=== PATIENT | female | born 1945 | race Two or more races ===

== ENCOUNTER 2025-10-22 13:59 | Emergency (ER) | payer OTHER ==
[~2025-10-22] VITALS: Ht 154.9 cm; Wt 67.6 kg
[2025-10-22] MEDS ORDERED: FARXIGA10 MG (14:31)
[2025-10-22] MEDS ORDERED: ACTEMRA162 MG/0.9 (14:31)
[2025-10-22] MEDS ORDERED: CRESTOR40 MG (14:31)
[2025-10-22] MEDS ORDERED: NEURONTIN300 MG (14:31)
[2025-10-22] MEDS ORDERED: NORVASC5 MG (14:32)
[2025-10-22] MEDS ORDERED: ELIQUIS5 MG (14:32)
[2025-10-22] MEDS ORDERED: METFORMIN HCL1000 M2 (14:32)
[2025-10-22] MEDS ORDERED: FAMOTIDINE/PF 20 MG in 0.9 % SODIUM CHLORIDE 100 ML IV ONE (17:45)
[2025-10-22] MEDS ORDERED: ONDANSETRON HCL 2 MG/ML VIAL IV ONE (17:45)
[2025-10-22] MEDS ORDERED: CIPROFLOXACIN IN 5 % DEXTROSE 200 ML IV ONE (17:45)
[2025-10-22] MEDS ORDERED: FAMOTIDINE/PF 20 MG/2 ML VIAL ONE (18:27)
[2025-10-22] MEDS ORDERED: ONDANSETRON HCL 2 MG/ML VIAL ONE (18:27)
[2025-10-22] MEDS ORDERED: CIPROFLOXACIN IN 5 % DEXTROSE 400 MG/200 ML PIGGYBAG IV ONE (18:27)
[2025-10-22 18:59] LABS: BASO % 0.5 % (0.1-1.2); EOS # 0.06 (0.04-0.54); EOS % 0.9 % (0.7-7.0); LYMPH # 1.27 (1.18-3.74); LYMPH % 19.5 % (19.3-53.1); MEAN PLATELET VOLUME 9.50 fl (9.4-12.4); MONO # 0.57 (0.24-0.82); MONO % 8.8 % (4.7-12.5); NEUT # 4.57 (1.56-6.13); NEUT % 70.1 % (34.0-71.1); RED CELL DISTRIBUTION WIDTH 12.9 % (11.6-14.4)
[2025-10-22 19:10] LABS: INR 1.13
[2025-10-22 19:22] LABS: ALT/SGPT 40.0 U/L (12-78); AST/SGOT 32.0 U/L (15-37); BILIRUBIN TOTAL 0.55 mg/dL (0.3-1.2); BUN CREA RATIO 19.0 (7.0-25.0); CREATININE SERUM 1.29 mg/dL (0.55-1.02); GFR 39.76; GLOBULINA 3.0 G/DL (2.4-3.5); GLUCOSE FASTING 121.0 mg/dL (65-100); OSMOLALITY SERUM 287.0 MOSM/KG (275-295)
[2025-10-22 20:25] LABS: URINE APPEARANCE Clear; URINE BILIRRUBIN Negative (NEGATIVE); URINE BLOOD Negative; URINE COLOR Yellow; URINE GLUCOSE Negative (NEGATIVE); URINE KETONE Negative (NEGATIVE); URINE LEUKOCYTE Trace; URINE NITRATE Negative; URINE PROTEIN Negative (NEGATIVE); URINE UROBILINOGEN 0.2 E.U./dl
[2025-10-22 20:32] LABS: URINE BACTERIA 8.0 uL (0.0-1933); URINE EPITHELIAL CELLS 12.7 uL (0.0-38.8); URINE RBC 5.0 uL (0.0-20.8); URINE WBC 13.1 uL (0.0-23.2)
[2025-10-22 20:51] LABS: URINE CAST 0.70 uL (0.0-1.40)
[2025-10-22] MEDS ORDERED: METRONIDAZOLE500 MG PO (23:58)
[2025-10-22] MEDS ORDERED: CIPRO500 MG PO (23:58)
[2025-10-22] MEDS ORDERED: INTESTINEX680 M1 PO (23:58)
== END 2025-10-23 02:55 | disposition home or self-care (01) ==
LOC: ER 14:00
PROVIDERS: General Practice
DX: R10.32 Left lower quadrant pain (principal); I10 Essential (primary) hypertension; E11.9 Type 2 diabetes mellitus without complications; Z79.84 Long term (current) use of oral hypoglycemic drugs; K57.30 Diverticulosis of large intestine without perforation or abscess without bleeding
CPT/HCPCS: 36415; 74177; 96365; 99284; J0744; J2405; J3490; Q9965